=== PATIENT | female | born 1990 | race Caucasian/White ===

== ENCOUNTER 2024-12-22 18:23 | Emergency (ER) | payer SELFPAY ==
[~2024-12-22] VITALS: Ht 157.5 cm; Wt 54.4 kg
[2024-12-22] MEDS ORDERED: HYDROCODONE/APAP 5-325MG TABLET ONE (18:56)
[2024-12-22] MEDS: HYDROCODONE/APAP 5-325MG TABLET PO ONE (19:02)
[2024-12-22] MEDS ORDERED: HYDR-4209 PO (19:29)
[2024-12-22 19:59] VITALS: BP 130/88; TEMP 97.9; O2SAT 99
== END 2024-12-22 19:59 | disposition home or self-care (01) ==
LOC: ER 18:23
DX: S52.532A Colles' fracture of left radius, initial encounter for closed fracture (principal); X58.XXXA Exposure to other specified factors, initial encounter; Y93.B9 Activity, other involving muscle strengthening exercises; Y92.89 Other specified places as the place of occurrence of the external cause; Y99.8 Other external cause status
CPT/HCPCS: 73090; 73110; A4606; A4663